=== PATIENT | female | born 1970 | race Caucasian/White ===

== ENCOUNTER → 2016-11-05 | Outpatient (CLI) | payer OTHER ==
[~2016-11-05] MED LIST: ADVAIR 5001 DISK W/D PO; ALBUTEROL MININEB NEB; ALBUTEROL17 GM; ALBUTEROL17 GM INH; AMITRIPTYLINE H50 MG PO; ANUSOL-HC SUPP25 MG PR; ATIVAN PO; AUGMENTIN875 MG DOB; BACTRIM DS TABL1 TA1 PO; BIRTH CONTROL PILL PO; CARAFATE1 G PO; CATAPRES0.1 MG PO; CHANTIX; CHANTIX1 EACH PO; CHANTIX1 MG PO; CIPRO PO; CLINORIL PO; COMBIVENT INH14.7 GM; COMBIVENT INH14.7 GM IH; COMBIVENT INH14.7 GM INH; COMBIVENT MININEB INH; COMBIVENT U/D3 M2 INH; COMBIVENT14.7 GM INH; DEPO-PROVER150 MG/ML INJ; DIAZEPAM PO; DICLOFENAC PO; DOXYCYCLINE HY100 M1 PO; E-MYCIN333 MG PO; EC-NAPROSYN375 MG PO; FAMOTIDINE PO; FLEXERIL PO; GUAIFENESIN200 M1 PO; IBUPROFEN PO; KEFLEX PO; KLONOPIN1 MG PO; KLONOPIN2 MG PO; LORATADINE PO; LORTAB 101 TAB 10/5 PO; LORTAB 7.5-5001 TAB PO; MEDROL PO; MEDROL4 MG/DOSE- PO; NAPROXEN500 M1 PO; NEXIUM PO; NICOTINE TRANSD21 MG EXT; NO MEDICATIONS; NORCO 5/325 TAB1 TAB PO; NORFLEX100 M1 PO; NUPERCAINAL60 GM RC; NYSTATIN5 ML; OMEPRAZOLE20 M1 PO; PERCOCET PO; PHENERGAN DM1 ML PO; PHENERGAN/CODEIN5 ML PO; PHENERGAN25 M1 PO; PHENERGAN25 MG PO; PREDNISONE PO; PREDNISONE10 MG/DOSE PO; PREDNISONE50 MG PO; PRILOSEC PO; PROCTOZONE CREAM; PROMETHAZINE D118 ML PO; ROBITUSSIN A-C-S1 ML PO; STOOL SOFTENER50 MG PO; SUDAFED; TOPROL XL PO; TUSSIONEX PENN473 ML PO; ULTRAM PO; VIBRAMYCIN100 M1 PO; VICODIN 5/1 TAB 5/50 PO; VICODIN 5/500 T1 TAB PO; VISTARIL50 MG PO; VITAMIN B12 SUBQ; ZITHROMAX PO; ZITHROMAX1 G/PKT PO; ZOLOFT PO; ZOLOFT20 MG/1 ML; ZOLOFT20 MG/1 ML PO; [UNRECOGNIZED DRUG - OTHER] PO; [UNRECOGNIZED DRUG - REMARK]
--- NOTE | ~2016-11-05 | MY11 ---
[facility] A Service of [facility] RADIOLOGY TEXT RESULTS PATIENT: JUAN BLUE LOCATION: [facility] : 70 UNIT #: [id number] AGE: [address]: Marva Wade MD SEX: F ORDER DR: [id number] [facility]. [place], [place] [address] [id number] O MR#: [id number] Acc #: [id number] NAME: JUAN BLUE : 1970 SEX: F STUDY DATE/TIME: 11/05/2016 15:51 UNIT: [facility] ROOM: STUDY DESCRIPTION: MY Mammogram Screening Dig Mark Attending Physician: Marva Wade M.D. Ordering Physician: Marva Wade M.D. Primary Care Physician: Marva Wade M.D. MEDICAL IMAGING REPORT This report is preliminary unless electronic signature is present EXAM Bilateral digital screening mammogram with CAD. INDICATION Breast cancer screening. 46-year-old asymptomatic female reports prior benign excisional biopsy of the breast. She denies personal or family history of breast cancer. COMPARISON Outside mammograms, 04/17/2013, 04/23/2014 ([facility], [address] [place] [address], [id number]) FINDINGS The breast tissue is heterogeneously dense, which could obscure detection of small masses. No suspicious findings are seen. IMPRESSION No mammographic evidence of malignancy. Annual clinical breast exam is recommended. Given the patient's breast density, she would likely benefit from annual screening breast tomosynthesis given increased sensitivity and diminished false positive rate as compared to conventional digital mammography. A result letter will be sent to the patient. BIRADS Final Assessment Category 1: NEGATIVE Dictated by... Brandon Ortiz M.D. [facility] A Service [facility] RADIOLOGY TEXT RESULTS PATIENT: JUAN BLUE LOCATION: [facility] : 70 UNIT #: [id number] AGE: [address]: Marva Wade MD SEX: F ORDER DR: THIS IS AN ELECTRONICALLY VERIFIED REPORT Brandon Ortiz M.D. at 11/08/2016 5:33 PM Pk TD: 11/08/2016 15:49 JOB #: [id number] MEDICAL IMAGING REPORT Page 1 of 1 COPY
== END | disposition home or self-care (01) ==
LOC: CWCC 15:28
DX: Z12.31 Encounter for screening mammogram for malignant neoplasm of breast (principal)
CPT/HCPCS: G0202

== ENCOUNTER → 2016-11-29 | Outpatient (CLI) | payer OTHER ==
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
== END | disposition home or self-care (01) ==
LOC: SRAD 15:09
DX: M54.2 Cervicalgia (principal); M50.321 Other cervical disc degeneration at C4-C5 level; M50.322 Other cervical disc degeneration at C5-C6 level; M50.323 Other cervical disc degeneration at C6-C7 level
CPT/HCPCS: 72040

== ENCOUNTER 2016-11-30 23:23 | Emergency (ER) | payer OTHER ==
[~2016-11-30 23:23] MED LIST changes: -AMITRIPTYLINE H50 MG PO; -CHANTIX1 EACH PO; -COMBIVENT U/D3 M2 INH; -NAPROXEN500 M1 PO; -VITAMIN B12 SUBQ
[2017-01-28] MEDS ORDERED: VITAMIN B12 SUBQ (16:04)
[2017-01-28] MEDS ORDERED: AMITRIPTYLINE H50 MG PO (16:04)
[2017-01-28] MEDS ORDERED: CHANTIX1 EACH PO (16:05)
[2017-01-28] MEDS ORDERED: TOPROL XL PO (16:05)
[2017-01-28] MEDS ORDERED: NAPROXEN500 M1 PO (16:06)
[2017-01-28] MEDS ORDERED: COMBIVENT U/D3 M2 INH (16:10)
== END 2016-12-01 02:08 | disposition home or self-care (01) ==
LOC: CED 23:23
DX: L50.9 Urticaria, unspecified (principal); J44.9 Chronic obstructive pulmonary disease, unspecified; I10 Essential (primary) hypertension; E78.5 Hyperlipidemia, unspecified; F32.9 Major depressive disorder, single episode, unspecified; Z90.710 Acquired absence of both cervix and uterus; F17.200 Nicotine dependence, unspecified, uncomplicated; Z88.0 Allergy status to penicillin; Z88.2 Allergy status to sulfonamides; Z88.1 Allergy status to other antibiotic agents; Z91.040 Latex allergy status; Z90.49 Acquired absence of other specified parts of digestive tract
CPT/HCPCS: 82947; 96374; 96375; 99283; 99284; J1200; J2930

== ENCOUNTER → 2017-01-28 | Day surgery (SDC) | payer OTHER ==
[~2017-01-28] MED LIST changes: +AMITRIPTYLINE H50 MG PO; +CHANTIX1 EACH PO; +COMBIVENT U/D3 M2 INH; +NAPROXEN500 M1 PO; +VITAMIN B12 SUBQ
--- NOTE | ~2017-01-28 | OR ---
Unit #: [id number] #: [id number] Patient: JUAN BLUE [id number] [address] [address] [id number] O MR#: [id number] NAME: JUAN BLUE ROOM: Date of Procedure: 01/28/2017 Admission Date: 01/28/2017 Surgeon: Antwan Oneal M.D. : 1970 Attending Physician: Antwan Oneal M.D. Referring Physician: Antwan Oneal M.D. Primary Care Physician: Marva Wade M.D. OPERATIVE REPORT PROCEDURE PERFORMED Esophagogastroduodenoscopy with biopsy. INDICATIONS FOR PROCEDURE The patient with persistent GERD as well as worsening hoarseness over a period of time. MEDICATIONS Monitored anesthesia. POSTOPERATIVE FINDINGS 1. Distal esophagus showed hiatal hernia along with mild esophagitis. Biopsies taken. 2. Other esophagus and vocal chords seems to be in good shape. 3. Gastritis with multiple erosions along with some duodenitis. Biopsies taken in the antrum and body. 4. Vocal cords were visualized and appear to be normal. PLAN Follow up on pathology report. Continue with PPI and reflux precautions. DESCRIPTION OF PROCEDURE The patient was explained of the procedure, risks, and benefits along with the risks and benefits of anesthesia. She was brought to the endoscopy room. Propofol anesthesia was given. Bite block was placed. The scope was passed down the mouth into the esophagus, stomach, duodenum, and distal duodenum. Findings as described. Biopsies taken. Gently, I pulled it out of the patient's mouth. She tolerated it well. Dictated by... David Arroyo/elle TD: 01/29/2017 02:28 JOB #: [id number] CC: Good Wade M.D. Unit #: [id number] #: [id number] Patient: JUAN BLUE OPERATIVE REPORT Page 1 of 1 X Antwan Oneal MD X PROCEDURE OPERATIVE NOTE
== END | disposition home or self-care (01) ==
LOC: COPS 11:55
PROVIDERS: Internal Medicine
PROC: 0DB58ZX Excision of Esophagus, Via Natural or Artificial Opening Endoscopic, Diagnostic (ICD-10-PCS; principal; 2017-01-28 13:30)
DX: K44.9 Diaphragmatic hernia without obstruction or gangrene (principal); K21.0 Gastro-esophageal reflux disease with esophagitis; K29.60 Other gastritis without bleeding; K29.80 Duodenitis without bleeding; R49.0 Dysphonia; J44.9 Chronic obstructive pulmonary disease, unspecified; E11.9 Type 2 diabetes mellitus without complications; F17.200 Nicotine dependence, unspecified, uncomplicated; Z79.899 Other long term (current) drug therapy; Z98.890 Other specified postprocedural states; Z90.710 Acquired absence of both cervix and uterus; Z91.040 Latex allergy status; Z88.0 Allergy status to penicillin; Z88.2 Allergy status to sulfonamides
CPT/HCPCS: 82947; 88300; 88305; J2250; J2405

== ENCOUNTER → 2017-02-04 | Day surgery (SDC) | payer OTHER ==
--- NOTE | ~2017-02-04 | OR ---
Unit #: [id number] #: [id number] Patient: JUAN BLUE [id number] [address] [address] [id number] O MR#: [id number] NAME: JUAN BLUE ROOM: Date of Procedure: 02/04/2017 Admission Date: 02/04/2017 Surgeon: Antwan Oneal M.D. : 1970 Attending Physician: Antwan Oneal M.D. Referring Physician: Antwan Oneal M.D. Primary Care Physician: Marva Wade M.D. OPERATIVE REPORT PROCEDURE PERFORMED Colonoscopy to cecum. INDICATIONS A 46-year-old female with history of colon polyps in the past, undergoing colonoscopy for surveillance. MEDICATIONS Monitored anesthesia. POSTOPERATIVE FINDINGS 1. Colonoscopy to cecum, good prep. 2. No polyps, masses, or colitis. 3. Diverticulosis. 4. Internal hemorrhoids. PLAN Given the history, I will repeat colonoscopy in 5 years. DESCRIPTION OF PROCEDURE The patient was explained of the procedure, risks, and benefits along with the risks and benefits of anesthesia. She was brought to the endoscopy room. Propofol anesthesia was given. Rectal exam was done, which was normal. Colonoscope was lubricated, passed up the rectum, advanced under direct vision all the way to the cecum. Cecum was identified by ileocecal valve and appendiceal orifice. I then started to pull the scope out carefully looking, Prep was good. No polyps, masses, or colitis were seen. Mucosa was normal and healthy. Diverticulosis and internal hemorrhoids noted. Gently, the scope was pulled out. She tolerated it well. Dictated by... David Arroyo/elle TD: 02/05/2017 08:16 JOB #: [id number] CC: Good Wade M.D. Unit #: [id number] #: [id number] Patient: JUAN BLUE OPERATIVE REPORT Page 1 of 1 X Antwan Oneal MD X PROCEDURE OPERATIVE NOTE
== END | disposition home or self-care (01) ==
LOC: COPS 12:00
DX: Z12.11 Encounter for screening for malignant neoplasm of colon (principal); K57.30 Diverticulosis of large intestine without perforation or abscess without bleeding; K64.8 Other hemorrhoids; F17.210 Nicotine dependence, cigarettes, uncomplicated; M19.90 Unspecified osteoarthritis, unspecified site; I10 Essential (primary) hypertension; J44.9 Chronic obstructive pulmonary disease, unspecified; Z79.899 Other long term (current) drug therapy; Z90.49 Acquired absence of other specified parts of digestive tract; Z98.890 Other specified postprocedural states; Z90.710 Acquired absence of both cervix and uterus; Z86.010 Personal history of colon polyps; Z88.0 Allergy status to penicillin; Z88.2 Allergy status to sulfonamides; Z88.1 Allergy status to other antibiotic agents; Z79.1 Long term (current) use of non-steroidal anti-inflammatories (NSAID)
CPT/HCPCS: 82947; J2405